=== PATIENT | male | born 1995 | race Caucasian/White ===

== ENCOUNTER 2019-06-11 12:38 | Emergency (ER) | payer SELFPAY ==
--- NOTE | 2019-06-11 12:56 | Emergency Department Record ---
History of Present Illness - General Chief Complaint: Cough Stated Complaint: COUGHING,SORE CHEST Time Seen by Provider: 06/11/19 12:50 Source: Patient Mode of Arrival: Ambulatory Limitations: No limitations - History of Present Illness Initial Comments: 23 yo male presents with just over a week of cough with productive sputum. He has a little sore throat and swollen glands. He did have his tonsils removed as a child. He vomited yesterday. None today. He is a smoker. MD Complaint: Cough, Fever, Sore throat -: Week(s) Severity: Moderate Quality: Aching Consistency: Constant Improves With: Nothing Worsens With: Other (coughing) Context: Other Associated Symptoms: Cough - Related Data Previous Rx's Medication Instructions Recorded Azithromycin [Zithromax] 250 mg PO DAILY #6 tab 06/11/19 Benzonatate [Tessalon] 1 cap PO Q8H PRN #16 cap 06/11/19 Allergies Allergy/AdvReac Type Severity Reaction Status Date / Time No Known Drug Allergies Allergy Verified 06/11/19 12:50 Review of Systems Constitutional: Reports: As per HPI, Chills, Fever, Malaise Eyes: Denies: Eye discharge ENT: Reports: As per HPI, Congestion, Throat pain. Denies: Ear pain Respiratory: Reports: As per HPI, Cough. Denies: Dyspnea Cardiovascular: Denies: Chest pain, Palpitations, Syncope Endocrine: Denies: Fatigue, Polydipsia, Polyuria Gastrointestinal: Reports: As per HPI, Vomiting (yesterday, resovled). Denies: Abdominal pain, Diarrhea Genitourinary: Denies: Dysuria, Frequency, Hematuria Musculoskeletal: Denies: Arthralgia, Back pain, Myalgia Skin: Denies: Bruising, Change in color, Rash Neurological: Denies: Headache Psychiatric: Denies: Anxiety Hematological/Lymphatic: Reports: As per HPI, Swollen glands. Denies: Easy bleeding, Easy bruising Physical Exam - General General Appearance: Alert, Oriented x3, Cooperative, No acute distress Limitations: No limitations - Head Head exam: Atraumatic, Normal inspection - Eye Eye exam: Normal appearance, PERRL. negative: Conjunctival injection, Scleral icterus - ENT ENT exam: Normal exam, Mucous membranes moist, Normal orophraynx, TM's normal bilaterally Ear exam: Normal external inspection Nasal Exam: Normal inspection Mouth exam: Normal external inspection Teeth exam: Normal inspection Throat exam: Normal inspection. negative: Tonsillar erythema, Tonsillomegaly, Tonsillar exudate, R peritonsillar mass, L peritonsillar mass, Other - Neck Neck exam: Full ROM, Lymphadenopathy - Respiratory Respiratory exam: Rhonchi (left greater than right). negative: Normal lung sounds bilaterally, Accessory muscle use, Decreased breath sounds, Prolonged expiratory, Wheezes - Cardiovascular Cardiovascular Exam: Regular rate, Normal rhythm, Normal heart sounds - GI/Abdominal GI/Abdominal exam: Soft, Normal bowel sounds. negative: Tenderness - Neurological Neurological exam: Alert, Oriented X3 - Psychiatric Psychiatric exam: Normal affect, Normal mood - Skin Skin exam: Dry, Intact, Normal color, Warm Disposition Disposition: Discharge Clinical Impression: Bronchitis Disposition: Home, Self-Care Condition: (1) Good Instructions: Acute Bronchitis (ED) Additional Instructions: Call your doctor for the next available follow up appointment Return to the ER for a recheck immediately if worse, any new concerns or questions Take the prescriptions provided as directed Prescriptions: Benzonatate [Tessalon] 1 cap PO Q8H PRN #16 cap PRN Reason: Cough Azithromycin [Zithromax] 250 mg PO DAILY #6 tab Forms: Patient Portal Access Time of Disposition: 12:56 Quality - Quality Measures Quality Measures: N/A - Blood Pressure Screening Does Patient Have Any of the Following: No Blood Pressure Classification: Pre-Hypertensive BP Reading Systolic Measurement: 128 Diastolic Measurement: 79 Screening for High Blood Pressure: < Pre-Hypertensive BP, F/U Documented > [G8950] Pre-Hypertensive Follow-up Interventions: Referral to alternative/primary care provider.
== END 2019-06-11 13:11 | disposition home or self-care (01) ==
LOC: ER 12:38
DX: J20.9 Acute bronchitis, unspecified (principal); F17.210 Nicotine dependence, cigarettes, uncomplicated
CPT/HCPCS: 99283

== ENCOUNTER 2019-07-01 16:06 | Emergency (ER) | payer OTHER ==
--- NOTE | 2019-07-01 16:20 | Emergency Department Record ---
History of Present Illness - General Chief complaint: Cold Stated complaint: COUGH/CONGESTION Time Seen by Provider: 07/01/19 16:15 Source: Patient Mode of Arrival: Ambulatory Limitations: No limitations - History of Present Illness Initial comments: The patient is here due to a cough and congestion for almost a week. He denies any fever, chills, CP or SOB but does have intermittent sputum production. The patient just finished a course of Zithromax 2 weeks ago for a similar illness. The patient's entire family is ill with the same illness at this time also. MD complaint: Other Onset/Timin -: Week(s) - Related Data Previous Rx's Medication Instructions Recorded Albuterol Sulfate [Proair Hfa] 2 puff IH QID PRN #1 inhaler 07/01/19 Prednisone [Prednisone 20Mg] 40 mg PO DAILY #10 tab 07/01/19 Allergies Allergy/AdvReac Type Severity Reaction Status Date / Time No Known Drug Allergies Allergy Verified 07/01/19 16:15 Review of Systems Constitutional: Reports: Malaise. Denies: Chills, Fever Eyes: Denies: Eye discharge ENT: Reports: Congestion Respiratory: Reports: Cough. Denies: Dyspnea Cardiovascular: Denies: Chest pain Endocrine: Reports: Fatigue Past Medical History - SOCIAL HISTORY Smoking Status: Current every day smoker Drug Use: None - RESPIRATORY Hx Respiratory Disorders: No - CARDIOVASCULAR Hx Cardio Disorders: No - NEURO Hx Neuro Disorders: No - GI Hx GI Disorders: No - Hx Genitourinary Disorders: No - ENDOCRINE Hx Endocrine Disorders: No - MUSCULOSKELETAL Hx Musculoskeletal Disorders: No - PSYCH Hx Psych Problems: No - HEMATOLOGY/ONCOLOGY Hx Hematology/Oncology Disorders: No Physical Exam - General General Appearance: Alert, Oriented x3, Cooperative, No acute distress - Head Head exam: Atraumatic, Normocephalic, Normal inspection - Eye Eye exam: Normal appearance, PERRL, EOMI - ENT ENT exam: Normal exam, Mucous membranes moist, Normal external ear exam, Normal orophraynx, TM's normal bilaterally Throat exam: Normal inspection. negative: Tonsillar erythema, Tonsillar exudate - Neck Neck exam: Normal inspection, Full ROM. negative: Lymphadenopathy, Meningismus, Tenderness - Respiratory Respiratory exam: Normal lung sounds bilaterally. negative: Respiratory distress - Cardiovascular Cardiovascular Exam: Regular rate, Normal rhythm, Normal heart sounds - GI/Abdominal GI/Abdominal exam: Soft, Normal bowel sounds. negative: Tenderness - Extremities Extremities exam: Normal inspection, Full ROM, Normal capillary refill. negative: Tenderness - Neurological Neurological exam: Alert. negative: Motor sensory deficit Course - Reevaluation(s) Reevaluation #1: The patient is feeling better after the breathing tx. I did discuss the neg xray with the patient and the need to quit smoking. We will discharge the patient with an inhaller and a short course of oral steroids. 07/01/19 17:21 Medical Decision Making - Data Complexity MDM Data: X-Ray Ordered and/or Reviewed - Radiology Data Radiology results: Report reviewed (CXR: neg.) Disposition Disposition: Discharge Clinical Impression: Bronchitis Disposition: Home, Self-Care Condition: (2) Stable Instructions: Upper Respiratory Infection (ED) Additional Instructions: Please use the inhaller and oral steroids as directed and please quit smoking. Please see your family doctor next week for recheck and return to the ER for any worsening issues. Prescriptions: Prednisone [Prednisone 20Mg] 40 mg PO DAILY #10 tab Albuterol Sulfate [Proair Hfa] 2 puff IH QID PRN #1 inhaler PRN Reason: Cough And Difficulty Breathing Forms: Patient Portal Access Time of Disposition: 17:23 Quality - Quality Measures Quality Measures: N/A - Blood Pressure Screening View Details: Yes Does Patient Have Any of the Following: No Blood Pressure Classification: Pre-Hypertensive BP Reading Systolic Measurement: 105 Diastolic Measurement: 89 Screening for High Blood Pressure: < Pre-Hypertensive BP, F/U Documented > [G8950] Pre-Hypertensive Follow-up Interventions: Referral to alternative/primary care provider.
[2019-07-01] MEDS ORDERED: ALBUTEROL SULFATE (0.083%) 2.5 MG/3 ML NEB INH ONE (16:35)
--- NOTE | 2019-07-01 17:10 | RADIOLOGY REPORT ---
EXAMINATION: Two View Chest Radiographs EXAM DATE: 07/01/2019 4:37 PM TECHNIQUE: Frontal and lateral views INDICATION: cough COMPARISON: None ENCOUNTER: Not applicable FINDINGS: No acute infiltrate, pleural effusion or vascular congestion. Cardiomediastinal silhouette and hilar structures are unremarkable. IMPRESSION: Normal chest. Dictated by: Herbie Cobb MD on 07/01/2019 5:05 PM. .
== END 2019-07-01 17:41 | disposition home or self-care (01) ==
LOC: ER 16:06
DX: J20.9 Acute bronchitis, unspecified (principal); F17.210 Nicotine dependence, cigarettes, uncomplicated
CPT/HCPCS: 71046; 94640; 99284; J7613